=== PATIENT | female | born 1945 | race Caucasian/White ===

== ENCOUNTER → 2017-03-11 | Outpatient (CLI) | payer MEDICARE, OTHER ==
[~2017-03-11] MED LIST: ANIMAL SHAPES1 EAC2 PO; CALCIUM + D 6001 TA1 PO; CLOTRIMAZOLE-BE30 M1 TOP; COATED ASPIRIN325 M1 PO; DURAGESIC75 MCG EXT; ESOMEPRAZOLE MA40 MG PO; FISH OIL 1,0001 EAC1 PO; FLEXERIL10 MG PO; GLUCOTROL10 MG PO; IMDUR-ER30 M1 PO; KLONOPIN1 MG PO; LASIX20 MG PO; LEVOTHYROXINE50 MCG PO; METFORMIN HCL500 M1 PO; NORCO 10-325 TA1 TAB PO; PLAQUENIL200 MG PO; SERTRALINE HCL100 MG PO; TENORMIN50 MG PO; VYTORIN 10/80 T1 TAB PO; ZESTRIL10 M1 PO; ZYRTEC10 M1 PO
--- NOTE | ~2017-03-11 | CT2 ---
[facility] A Service of [facility] & [facility] RADIOLOGY TEXT RESULTS PATIENT: CORBY PAYAN [facility] : 47 UNIT #: [id number] AGE: [address]: Yamilex Thao MD SEX: F ORDER DR: [id number] [facility] [address] [place], [place] [address] [id number] O MR#: [id number] [facility] #: [id number] NAME: CORBY PAYAN : 1945 SEX: F STUDY DATE/TIME: 03/11/2017 11:07 [facility] ROOM: STUDY DESCRIPTION: CT Abd and Pelv W Cont Attending Physician: Yamilex Thao M.D., Ph.D. Referring Physician: Yamilex Thao M.D., Ph.D. Ordering Physician: Yamilex Thao M.D., Ph.D. Primary Care Physician: Shannon Nelson M.D. MEDICAL IMAGING REPORT This report is preliminary unless electronic signature is present EXAM CT of abdomen and pelvis with contrast. INDICATIONS Follow-up lymphoma. COMPARISON STUDIES 10/28/2016 TECHNIQUE The patient was given 100 mL of Isovue 370 and axial 5 mm images were obtained through the abdomen and pelvis. Sagittal and frontal reconstructions were generated. This CT exam was performed with one or more of the following radiation dose reduction techniques: automatic exposure control, adjustment of mA and/or kV according to patient size, and iterative reconstruction. FINDINGS The lung bases are clear. The liver, gallbladder, spleen, pancreas and adrenal glands are normal. The right kidney is normal. The left kidney has a 2.5 cm cyst in the upper pole, and is otherwise, normal. The aorta is normal in size. There is some focal enlargement of either the distal aorta or proximal common iliac artery measuring up to about 14 mm in diameter. This appearance is unchanged from the prior study. There may be surgical clips in this region. 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 No adenopathy is identified. The bowel is normal. The anterior abdominal wall, umbilical hernia is stable. The uterus has been removed. The bladder is normal. The bones show mild degenerative changes. IMPRESSION 1. No evidence of recurrent lymphoma. [facility]. [facility] A Service of [facility] & [facility] RADIOLOGY TEXT RESULTS PATIENT: CORBY PAYAN LOCATION: [facility] : 47 UNIT #: [id number] AGE: [address]: Yamilex Thao MD SEX: F ORDER DR: 2. No significant change from the prior study. Dictated by... Bennett Osborne M.D. THIS IS AN ELECTRONICALLY VERIFIED REPORT Bennett Osborne M.D. at 03/12/2017 9:42 AM RAUL/osmel TD: 03/11/2017 21:07 JOB #: [id number] MEDICAL IMAGING REPORT Page 1 of 1 COPY
--- NOTE | ~2017-03-11 | CT55 ---
[facility] A Service of [facility] RADIOLOGY TEXT RESULTS PATIENT: CORBY PAYAN LOCATION: [facility] : 47 UNIT #: [id number] AGE: [address]: Yamilex Thao MD SEX: F ORDER DR: [id number] [facility] [address] [place], [place] [address] [id number] O MR#: [id number] [facility] #: [id number] NAME: CORBY PAYAN : 1945 SEX: F STUDY DATE/TIME: 03/11/2017 11:07 UNIT: [facility] ROOM: STUDY DESCRIPTION: CT Chest W Con Attending Physician: Yamilex Thao M.D., Ph.D. Referring Physician: Yamilex Thao M.D., Ph.D. Ordering Physician: Yamilex Thao M.D., Ph.D. Primary Care Physician: Shannon Nelson M.D. MEDICAL IMAGING REPORT This report is preliminary unless electronic signature is present EXAM Chest CT with contrast. HISTORY Lymphoma. Multifocal lymphadenopathy. Evaluate response to treatment. TECHNIQUE Axial images were obtained through the chest with contrast. 100 mL of Isovue was used. This CT exam was performed with one or more of the following radiation dose reduction techniques: automatic exposure control, adjustment of mA and/or kV according to patient size, and iterative reconstruction. COMPARISON The study is correlated with a PET/CT scan dated 06/16/2016. FINDINGS Chest images at mediastinal window show a patent graft off of the right subclavian artery. There is no evidence of mediastinal, hilar, or axillary adenopathy. Numerous prominent lymph nodes in the upper mediastinum, axillary, and subpectoral regions seen on the previous scan have resolved. There is no evidence of pleural or pericardial fluid. Lung window imaging shows both lungs to be clear. No bony lesions are seen in the thoracic vertebrae. IMPRESSION Essentially negative chest CT. No evidence of adenopathy. Adenopathy seen on the previous PET/CT in June 2016 has resolved. [facility] A Service [facility] RADIOLOGY TEXT RESULTS PATIENT: CORBY PAYAN LOCATION: [facility] : 47 UNIT #: [id number] AGE: [address]: Yamilex Thao MD SEX: F ORDER DR: Dictated by... Simone Berrios M.D. THIS IS AN ELECTRONICALLY VERIFIED REPORT Simone Berrios M.D. at 03/12/2017 4:47 PM RLF/al TD: 03/12/2017 15:27 JOB #: [id number] MEDICAL IMAGING REPORT Page 1 of 1 COPY
[2017-03-11 11:56] LABS: POC - CREATININE 0.92 mg/dL (0.44-1.03); POC - GFR >60.0 mL/min (>60)
== END | disposition home or self-care (01) ==
LOC: CCAT 10:21
PROVIDERS: Internal Medicine Hematology & Oncology
DX: C82.28 Follicular lymphoma grade III, unspecified, lymph nodes of multiple sites (principal)
CPT/HCPCS: 71260; 74177; 82565; Q9967